=== PATIENT | male | born 1945 | race Caucasian/White ===

== ENCOUNTER 2018-04-13 04:26 | Inpatient (IN) | payer MEDICARE, MEDICAID ==
[2018-04-13] VITALS (8 sets, daily range): BP systolic 105–158; BP diastolic 58–78
[~2018-04-13] VITALS: Ht 185.4 cm; Wt 67.8 kg
[2018-04-13] MEDS ORDERED: IPRATROPIUM BROMIDE (0.02%) 0.5MG/2.5ML NEB HHN STA (04:36)
[2018-04-13] MEDS ORDERED: METHYLPREDNISOLONE SOD SUCC 125 MG/2 ML VIAL IV STA (04:36)
[2018-04-13] MEDS ORDERED: MAGNESIUM 2 G PREMIX 50 ML IV ONE (04:45)
[2018-04-13] MEDS: ALBUTEROL (0.083%) 2.5MG/3ML NEB HHN SCH ×3 (05:00→06:37)
[2018-04-13] MEDS ORDERED: LEVOFLOXACIN 750MG PREMIX 150 ML IV ONE (05:00)
[2018-04-13] MEDS ORDERED: CALCIUM GLUCONATE 100MG/ML 10ML VIAL IV ONE (05:00)
[2018-04-13 05:10] LABS: HEMATOCRIT. 41.8 % (42.0-52.0); HEMOGLOBIN. 14.1 g/dL (14.0-18.0); MEAN CORPUSCULAR HEMOGLOBIN 30.4 pg (28.0-32.0); MEAN CORPUSCULAR VOLUME 90.4 fL (80.0-94.0); MEAN PLATELET VOLUME 6.6 fl (7.4-10.4); PLATELET 371 x1000/uL (130-400); RED BLOOD CELL COUNT 4.62 mill/uL (4.7-6.1)
[2018-04-13 05:14] LABS: CHLORIDE 95 mEq/L (98-107)
[2018-04-13] MEDS ORDERED: CALCIUM GLUCONATE 1,000 MG in DEXTROSE 5% WATER 50 ML IV SCH (06:00)
[2018-04-13] MEDS: MAGNESIUM 1 G PREMIX 100 ML IV SCH ×2 (06:07→07:30)
[2018-04-13 07:09] LABS: PLATELET ESTIMATE NORMAL
[2018-04-13] MEDS: DILTIAZEM HCL 30MG TABLET PO SCH ×3 (08:03→21:31)
[2018-04-13 08:57] LABS: BG BASE EXCESS 0.7 mmol/L (-2.0-2.0); BG CARBOXYHEMOGLOBIN 0.9 % (0.5-1.5); BG DEOXYHEMOGLOBIN 5.1 % (0.0-5.0); BG HCO3 ACT 24.9 mmol/L (22.0-26.0); BG METHEMOGLOBIN 0.4 % (0.0-1.5); BG OXYGEN SATURATION 94.8 % (92.0-98.5); BG OXYHEMOGLOBIN 93.6 % (94.0-97.0); BG PCO2 38.8 mmHg (35.0-45.0); BG PH 7.426 (7.350-7.450); BG PO2 79.7 mmHg (75.0-100.0); BG SAMPLE SITE RIGHT RADIAL; BG TOTAL HEMOGLOBIN 13.7 g/dL (12.0-18.0); BG VENT MODE NASAL CANNULA
[2018-04-13] MEDS ORDERED: ACETAMINOPHEN 325MG TABLET PO PRN (09:30)
[2018-04-13] MEDS ORDERED: MAGNESIUM/ALUMINUM HYDROXIDE/SIMETHICONE 30ML UDC PO PRN (09:30)
[2018-04-13] MEDS ORDERED: ACETAMINOPHEN 650MG SUPP PR PRN (09:30)
[2018-04-13] MEDS ORDERED: ACETAMINOPHEN 650MG/20.3ML UDC GT PRN (09:30)
[2018-04-13] MEDS ORDERED: ONDANSETRON HCL 4MG/2ML INJ IV PRN (09:30)
[2018-04-13] MEDS ORDERED: HYDROCODONE/ACETAMINOPHEN 5/325MG TABLET PO PRN (09:30)
[2018-04-13 13:55] LABS: CHLORIDE 92 mEq/L (98-107)
[2018-04-13] MEDS ORDERED: LEVOFLOXACIN 750MG PREMIX 150 ML IV SCH (14:00)
[2018-04-13] MEDS ORDERED: IPRATROPIUM/ALBUTEROL 0.5-3(2.5)MG/3ML NEB HHN PRN (14:00)
[2018-04-13 15:46] LABS: CREATINE KINASE 15 IU/L (39-308)
[2018-04-13 15:47] LABS: CREATINE KINASE MB FRACTION < 1.0 ng/mL (0.5-3.6)
[2018-04-13] MEDS: ASPIRIN 325MG EC TABLET PO SCH (16:29)
[2018-04-13] MEDS: NICOTINE 14MG PATCH TD SCH (16:29)
[2018-04-13] MEDS: DIGOXIN 125MCG TABLET PO SCH (17:39)
[2018-04-13] MEDS ORDERED: IOHEXOL-350 100 ML BOTTLE ONE (19:55)
[2018-04-13] MEDS: IPRATROPIUM/ALBUTEROL 0.5-3(2.5)MG/3ML NEB HHN SCH (20:52)
[2018-04-13] MEDS: BUDESONIDE 0.5MG/2ML NEB HHN SCH (20:53)
[2018-04-14] VITALS (13 sets, daily range): BP systolic 96–130; BP diastolic 44–98
[2018-04-14 00:29] LABS: AMMONIA 28 uMol/L (<32)
[2018-04-14] MEDS: IPRATROPIUM/ALBUTEROL 0.5-3(2.5)MG/3ML NEB HHN SCH ×4 (00:51→20:46)
[2018-04-14] MEDS: DILTIAZEM HCL 30MG TABLET PO SCH ×2 (05:59→13:42)
[2018-04-14 06:43] LABS: HEMATOCRIT. 33.9 % (42.0-52.0); HEMOGLOBIN. 11.4 g/dL (14.0-18.0); MEAN CORPUSCULAR HEMOGLOBIN 30.3 pg (28.0-32.0); MEAN CORPUSCULAR VOLUME 90.3 fL (80.0-94.0); MEAN PLATELET VOLUME 7.2 fl (7.4-10.4); PLATELET 348 x1000/uL (130-400); RED BLOOD CELL COUNT 3.75 mill/uL (4.7-6.1)
[2018-04-14 07:12] LABS: CHLORIDE 93 mEq/L (98-107)
[2018-04-14 07:20] LABS: LDL CHOLESTEROL 43 mg/dL (5-100)
[2018-04-14 07:22] LABS: HDL CHOLESTEROL 48 mg/dL (40-59)
[2018-04-14] MEDS: BUDESONIDE 0.5MG/2ML NEB HHN SCH ×3 (08:41→20:46)
[2018-04-14] MEDS: NICOTINE 14MG PATCH TD SCH (08:57)
[2018-04-14] MEDS: PREDNISONE 20MG TABLET PO SCH (08:57)
[2018-04-14] MEDS: ASPIRIN 325MG EC TABLET PO SCH (08:57)
[2018-04-14 09:01] LABS: CLARITY URINE CLEAR (CLEAR); COLOR URINE YELLOW (YELLOW); KETONES URINE NEGATIVE (NEGATIVE); LEUKOCYTE ESTERASE URINE NEGATIVE (NEGATIVE); NITRITE URINE NEGATIVE (NEGATIVE); OCCULT BLOOD URINE NEGATIVE (NEGATIVE); PH URINE 7.5 (4.5-8.0); PROTEIN URINE NEGATIVE (NEGATIVE); SPECIFIC GRAVITY URINE 1.023 (1.005-1.030); UROBILINOGEN URINE 0.2 E.U./dL (0.2-1.0)
[2018-04-14 09:33] LABS: *AMPHETAMINES SCREEN URINE NEGATIVE (NEGATIVE); *BARBITURATES SCREEN URINE NEGATIVE (NEGATIVE); *BENZODIAZEPINES SCREEN URINE NEGATIVE (NEGATIVE); *COCAINE SCREEN URINE NEGATIVE (NEGATIVE); METHADONE URINE SCREEN NEGATIVE (NEGATIVE); OPIATES URINE SCREEN PRESUMTIVE POSITIVE (NEGATIVE)
[2018-04-14 09:34] LABS: CANNABINOID URINE SCREEN NEGATIVE (NEGATIVE); PHENCYCLIDINE URINE SCREEN NEGATIVE (NEGATIVE)
[2018-04-14] MEDS ORDERED: TRAMADOL 50MG TABLET PO PRN (10:30)
[2018-04-14] MEDS: LEVOFLOXACIN 750MG PREMIX 150 ML IV SCH (11:26)
[2018-04-14 14:32] LABS: PLATELET ESTIMATE NORMAL
[2018-04-14] MEDS: DIGOXIN 125MCG TABLET PO SCH (18:00)
[2018-04-14] MEDS: DILTIAZEM HCL 60MG TABLET PO SCH (21:16)
[2018-04-15] VITALS (8 sets, daily range): BP systolic 103–144; BP diastolic 56–78
[2018-04-15] MEDS: IPRATROPIUM/ALBUTEROL 0.5-3(2.5)MG/3ML NEB HHN SCH ×4 (01:17→21:28)
[2018-04-15 05:59] LABS: CHLORIDE 93 mEq/L (98-107)
[2018-04-15] MEDS: DILTIAZEM HCL 60MG TABLET PO SCH ×3 (07:12→21:04)
[2018-04-15] MEDS: BUDESONIDE 0.5MG/2ML NEB HHN SCH ×2 (07:29→21:28)
[2018-04-15] MEDS: ASPIRIN 325MG EC TABLET PO SCH (09:26)
[2018-04-15] MEDS: NICOTINE 14MG PATCH TD SCH (09:26)
[2018-04-15] MEDS: PREDNISONE 20MG TABLET PO SCH (09:26)
[2018-04-15] MEDS: LEVOFLOXACIN 750MG PREMIX 150 ML IV SCH (11:00)
[2018-04-15] MEDS ORDERED: GUAIFENESIN 600MG ER TABLET PO SCH (11:30)
[2018-04-15] MEDS: GUAIFENESIN 600MG ER TABLET PO SCH ×2 (13:50→20:59)
[2018-04-15 13:56] LABS: BG BASE EXCESS 2.8 mmol/L (-2.0-2.0); BG CARBOXYHEMOGLOBIN 1.2 % (0.5-1.5); BG DEOXYHEMOGLOBIN 10.4 % (0.0-5.0); BG FRACTION INSPIRED OXYGEN 21; BG HCO3 ACT 27.2 mmol/L (22.0-26.0); BG METHEMOGLOBIN 0.3 % (0.0-1.5); BG OXYGEN SATURATION 89.4 % (92.0-98.5); BG OXYHEMOGLOBIN 88.1 % (94.0-97.0); BG PCO2 40.8 mmHg (35.0-45.0); BG PH 7.441 (7.350-7.450); BG PO2 57.2 mmHg (75.0-100.0); BG SAMPLE SITE RIGHT BRACHIAL; BG TOTAL HEMOGLOBIN 13.1 g/dL (12.0-18.0); BG VENT MODE ROOM AIR
[2018-04-15] MEDS: DIGOXIN 125MCG TABLET PO SCH (17:53)
[2018-04-16] VITALS: BP 110/59
[2018-04-16] MEDS: IPRATROPIUM/ALBUTEROL 0.5-3(2.5)MG/3ML NEB HHN SCH ×4 (01:34→21:50)
[2018-04-16 04:00] VITALS: BP 112/60
[2018-04-16] MEDS: DILTIAZEM HCL 60MG TABLET PO SCH ×3 (06:37→21:47)
[2018-04-16 08:00] VITALS: BP 124/65
[2018-04-16] MEDS: BUDESONIDE 0.5MG/2ML NEB HHN SCH ×2 (08:08→21:50)
[2018-04-16] MEDS: PREDNISONE 20MG TABLET PO SCH (09:00)
[2018-04-16] MEDS: GUAIFENESIN 600MG ER TABLET PO SCH ×2 (09:00→20:44)
[2018-04-16] MEDS: ASPIRIN 325MG EC TABLET PO SCH (09:00)
[2018-04-16] MEDS: NICOTINE 14MG PATCH TD SCH (09:00)
[2018-04-16 09:38] LABS: BASOPHILS % 0.5 % (0.0-2.0); EOSINOPHILS % 1.1 % (0.0-5.0); HEMATOCRIT. 38.8 % (42.0-52.0); HEMOGLOBIN. 12.9 g/dL (14.0-18.0); MEAN CORPUSCULAR HEMOGLOBIN 29.9 pg (28.0-32.0); MEAN CORPUSCULAR VOLUME 89.7 fL (80.0-94.0); MEAN PLATELET VOLUME 7.4 fl (7.4-10.4); MONOCYTES % 10.4 % (2.0-8.0); PLATELET 424 x1000/uL (130-400); RED BLOOD CELL COUNT 4.32 mill/uL (4.7-6.1); RED CELL DISTRIBUTION WIDTH 14.9 % (11.6-14.6)
[2018-04-16 10:38] LABS: CHLORIDE 90 mEq/L (98-107)
[2018-04-16 10:46] LABS: PHOSPHORUS 3.1 mg/dL (2.5-4.9)
[2018-04-16 12:00] VITALS: BP 111/58
[2018-04-16] MEDS ORDERED: MAGNESIUM 1 G PREMIX 100 ML IV NR (13:00)
[2018-04-16] MEDS: LEVOFLOXACIN 750MG PREMIX 150 ML IV SCH (13:17)
[2018-04-16] MEDS: SODIUM CHLORIDE 0.9% 1,000 ML IV SCH (15:47)
[2018-04-16 16:00] VITALS: BP 120/69
[2018-04-16] MEDS: DIGOXIN 125MCG TABLET PO SCH (17:23)
[2018-04-16 19:07] LABS: SODIUM URINE RANDOM 27 mEq/L
[2018-04-16 20:00] VITALS: BP 109/76
[2018-04-17] VITALS (8 sets, daily range): BP systolic 121–149; BP diastolic 67–78
[2018-04-17] MEDS: IPRATROPIUM/ALBUTEROL 0.5-3(2.5)MG/3ML NEB HHN SCH ×3 (02:01→14:44)
[2018-04-17] MEDS: DILTIAZEM HCL 60MG TABLET PO SCH ×2 (05:36→16:22)
[2018-04-17] MEDS: BUDESONIDE 0.5MG/2ML NEB HHN SCH (08:06)
[2018-04-17] MEDS ORDERED: PREDNISONE 20MG TABLET PO SCH (09:00)
[2018-04-17] MEDS: ASPIRIN 325MG EC TABLET PO SCH (09:26)
[2018-04-17] MEDS: NICOTINE 14MG PATCH TD SCH (09:27)
[2018-04-17] MEDS: GUAIFENESIN 600MG ER TABLET PO SCH (11:07)
[2018-04-17] MEDS: LEVOFLOXACIN 750MG PREMIX 150 ML IV SCH (11:08)
[2018-04-17] MEDS: SODIUM CHLORIDE 0.9% 1,000 ML IV SCH (11:12)
[2018-04-17] MEDS: DIGOXIN 125MCG TABLET PO SCH (20:00)
== END 2018-04-17 21:15 | DRG 871 ==
LOC: ER 04:26 → 3WST 05:14 → EDBEDREQ 05:15 → EDBEDREQTM 05:15 → EDBEDREQSVC 05:15 → ENRESERV 13:41 → 5WST 04-15 12:19
PROVIDERS: ADMIT Internal Medicine; ATTEND Internal Medicine
DX: A41.9 Sepsis, unspecified organism (principal); J18.1 Lobar pneumonia, unspecified organism; J96.21 Acute and chronic respiratory failure with hypoxia; E43 Unspecified severe protein-calorie malnutrition; J44.1 Chronic obstructive pulmonary disease with (acute) exacerbation; J44.0 Chronic obstructive pulmonary disease with (acute) lower respiratory infection; E87.1 Hypo-osmolality and hyponatremia; E87.2 Acidosis; Z68.1 Body mass index [BMI] 19.9 or less, adult; F20.9 Schizophrenia, unspecified; G40.909 Epilepsy, unspecified, not intractable, without status epilepticus; Y95 Nosocomial condition; I48.91 Unspecified atrial fibrillation; J84.10 Pulmonary fibrosis, unspecified; E83.42 Hypomagnesemia; E87.8 Other disorders of electrolyte and fluid balance, not elsewhere classified; H26.9 Unspecified cataract; G47.00 Insomnia, unspecified; R73.9 Hyperglycemia, unspecified; F17.210 Nicotine dependence, cigarettes, uncomplicated; Z86.73 Personal history of transient ischemic attack (TIA), and cerebral infarction without residual deficits; Z71.6 Tobacco abuse counseling; Z79.899 Other long term (current) drug therapy
CPT/HCPCS: 36415; 36600; 71045; 71275; 80048; 80053; 80061; 80305; 81003; 82140; 82375; 82550; 82553; 82805; 83605; 83690; 83735; 83880; 83935; 83937; 84100; 84145; 84300; 84439; 84443; 84481; 84484; 85025; 87040; 87086; 92610; 93005; 93306; 93970; 94640; 94660; 96365; 96366; 96367; 97116; 97162; 97166; 97530; 97535; 99291; J0610; J1956; J2930; J3475; J7030; J7050; J7060; J7512; J7611; J7620; J7626; Q9967

== ENCOUNTER 2018-10-09 22:34 | Inpatient (IN) | payer MEDICARE, MEDICAID ==
[~2018-10-09] VITALS: Ht 182.9 cm; Wt 76.2 kg
[2018-10-09] MEDS ORDERED: MAGNESIUM 2 G PREMIX 50 ML IV STA (23:31)
[2018-10-09] MEDS ORDERED: ALBUTEROL (0.083%) 2.5MG/3ML NEB HHN STA (23:31)
[2018-10-09] MEDS ORDERED: IPRATROPIUM BROMIDE (0.02%) 0.5MG/2.5ML NEB HHN STA (23:31)
[2018-10-09] MEDS ORDERED: METHYLPREDNISOLONE SOD SUCC 125 MG/2 ML VIAL IV STA (23:31)
[2018-10-09] MEDS ORDERED: ASPIRIN 325MG EC TABLET PO ONE (23:45)
[2018-10-10] VITALS (8 sets, daily range): BP systolic 109–140; BP diastolic 68–92
[2018-10-10 00:03] LABS: HEMATOCRIT. 36.3 % (42.0-52.0); HEMOGLOBIN. 12.5 g/dL (14.0-18.0); MEAN CORPUSCULAR HEMOGLOBIN 29.8 pg (28.0-32.0); MEAN CORPUSCULAR VOLUME 86.8 fL (80.0-94.0); MEAN PLATELET VOLUME 6.5 fl (7.4-10.4); PLATELET 256 x1000/uL (130-400); RED BLOOD CELL COUNT 4.18 mill/uL (4.7-6.1); RED CELL DISTRIBUTION WIDTH 14.6 % (11.6-14.6)
[2018-10-10 00:06] LABS: CHLORIDE 95 mEq/L (98-107)
[2018-10-10 00:08] LABS: INR 1.1; PROTHROMBIN TIME 11.5 sec (9.1-11.1)
[2018-10-10] MEDS ORDERED: METHYLPREDNISOLONE SOD SUCC 125 MG/2 ML VIAL IV SCH (00:25)
[2018-10-10] MEDS ORDERED: SODIUM CHLORIDE 0.9% 500 ML IV ONE (00:29)
[2018-10-10] MEDS ORDERED: PIPERACILLIN/TAZ 3.375G PREMIX 50 ML IV ONE (00:45)
[2018-10-10] MEDS ORDERED: LEVOFLOXACIN 750MG PREMIX 150 ML IV ONE (00:45)
[2018-10-10] MEDS ORDERED: SODIUM CHLORIDE 0.9% 1000ML BAG (SEPSIS BOLUS) IV ONE (00:45)
[2018-10-10] MEDS: SODIUM CHLORIDE 0.9% 1,000 ML IV SCH ×2 (04:43→21:07)
[2018-10-10] MEDS ORDERED: MAGNESIUM/ALUMINUM HYDROXIDE/SIMETHICONE 30ML UDC PO PRN (04:45)
[2018-10-10] MEDS ORDERED: PIPERACILLIN/TAZ 3.375G PREMIX 50 ML IV SCH (04:45)
[2018-10-10] MEDS ORDERED: HYDROCODONE/ACETAMINOPHEN 5/325MG TABLET PO PRN (04:45)
[2018-10-10] MEDS ORDERED: ONDANSETRON HCL 4MG/2ML INJ IV PRN (04:45)
[2018-10-10] MEDS ORDERED: DOCUSATE SODIUM 100MG CAPSULE PO PRN (04:45)
[2018-10-10] MEDS ORDERED: ACETAMINOPHEN 325MG TABLET PO PRN (04:45)
[2018-10-10] MEDS ORDERED: IPRATROPIUM/ALBUTEROL 0.5-3(2.5)MG/3ML NEB INH PRN (04:45)
[2018-10-10] MEDS ORDERED: GUAIFENESIN 200MG/10ML SUGAR FREE UDC PO PRN (04:45)
[2018-10-10 05:31] LABS: PLATELET ESTIMATE NORMAL
[2018-10-10 06:47] LABS: CREATINE KINASE 604 IU/L (39-308)
[2018-10-10 06:48] LABS: CREATINE KINASE MB FRACTION 1.9 ng/mL (0.5-3.6)
[2018-10-10] MEDS ORDERED: NA PHOS,M-B/NA PHOS,DI-BA ENEMA 118ML PR PRN (09:00)
[2018-10-10] MEDS: ENOXAPARIN 40MG/0.4ML SYR SUBCUT SCH (10:32)
[2018-10-10 12:07] LABS: CLARITY URINE CLEAR (CLEAR); COLOR URINE YELLOW (YELLOW); KETONES URINE NEGATIVE (NEGATIVE); LEUKOCYTE ESTERASE URINE NEGATIVE (NEGATIVE); NITRITE URINE NEGATIVE (NEGATIVE); OCCULT BLOOD URINE NEGATIVE (NEGATIVE); PROTEIN URINE TRACE (NEGATIVE); SPECIFIC GRAVITY URINE 1.021 (1.005-1.030); UROBILINOGEN URINE 0.2 E.U./dL (0.2-1.0)
[2018-10-10] MEDS: PIPERACILLIN/TAZ 3.375G PREMIX 50 ML IV SCH ×2 (13:30→19:03)
[2018-10-10] MEDS: METHYLPREDNISOLONE SOD SUCC 40 MG/ML VIAL IV SCH ×2 (17:11→23:33)
[2018-10-10] MEDS: DILTIAZEM HCL 30MG TABLET PO SCH ×2 (17:11→23:33)
[2018-10-10 17:32] LABS: CREATINE KINASE 473 IU/L (39-308)
[2018-10-10 17:33] LABS: CREATINE KINASE MB FRACTION 2.8 ng/mL (0.5-3.6)
[2018-10-10] MEDS: GUAIFENESIN 600MG ER TABLET PO SCH (21:07)
[2018-10-10] MEDS: IPRATROPIUM BROMIDE (0.02%) 0.5MG/2.5ML NEB HHN SCH (21:25)
[2018-10-10] MEDS: BUDESONIDE 0.5MG/2ML NEB HHN SCH (21:25)
[2018-10-11] VITALS (12 sets, daily range): BP systolic 96–138; BP diastolic 54–94
[2018-10-11] MEDS: IPRATROPIUM BROMIDE (0.02%) 0.5MG/2.5ML NEB HHN SCH ×6 (01:21→21:03)
[2018-10-11] MEDS: PIPERACILLIN/TAZ 3.375G PREMIX 50 ML IV SCH ×3 (03:19→18:06)
[2018-10-11] MEDS: METHYLPREDNISOLONE SOD SUCC 40 MG/ML VIAL IV SCH ×3 (06:17→21:54)
[2018-10-11] MEDS: DILTIAZEM HCL 30MG TABLET PO SCH ×4 (06:18→23:25)
[2018-10-11 07:20] LABS: HEMATOCRIT. 35.3 % (42.0-52.0); MEAN CORPUSCULAR HEMOGLOBIN 29.2 pg (28.0-32.0); MEAN CORPUSCULAR VOLUME 86.2 fL (80.0-94.0); PLATELET 249 x1000/uL (130-400); RED CELL DISTRIBUTION WIDTH 14.6 % (11.6-14.6)
[2018-10-11 07:46] LABS: CHLORIDE 96 mEq/L (98-107)
[2018-10-11] MEDS: ENOXAPARIN 40MG/0.4ML SYR SUBCUT SCH (08:29)
[2018-10-11] MEDS: GUAIFENESIN 600MG ER TABLET PO SCH ×2 (08:30→21:54)
[2018-10-11] MEDS: BUDESONIDE 0.5MG/2ML NEB HHN SCH ×2 (09:33→21:03)
[2018-10-11 10:25] LABS: PLATELET ESTIMATE NORMAL
[2018-10-11 10:35] LABS: BG BASE EXCESS 2.6 mmol/L (-2.0-2.0); BG CARBOXYHEMOGLOBIN 0.3 % (0.5-1.5); BG FRACTION INSPIRED OXYGEN 32; BG HCO3 ACT 27.4 mmol/L (22.0-26.0); BG METHEMOGLOBIN 0.2 % (0.0-1.5); BG OXYHEMOGLOBIN 94.5 % (94.0-97.0); BG PCO2 42.9 mmHg (35.0-45.0); BG PH 7.423 (7.350-7.450); BG PO2 80.5 mmHg (75.0-100.0); BG SAMPLE SITE LEFT RADIAL; BG TOTAL HEMOGLOBIN 11.9 g/dL (12.0-18.0); BG VENT MODE NASAL CANNULA
[2018-10-11] MEDS: ACETYLCYSTEINE 100MG/ML 10% VIAL 4ML INH SCH ×2 (13:04→16:57)
[2018-10-11 13:06] LABS: OPIATES URINE SCREEN PRESUMTIVE POSITIVE (NEGATIVE)
[2018-10-11 13:07] LABS: *AMPHETAMINES SCREEN URINE NEGATIVE (NEGATIVE); *BARBITURATES SCREEN URINE NEGATIVE (NEGATIVE); *BENZODIAZEPINES SCREEN URINE NEGATIVE (NEGATIVE); *COCAINE SCREEN URINE NEGATIVE (NEGATIVE); CANNABINOID URINE SCREEN NEGATIVE (NEGATIVE); METHADONE URINE SCREEN NEGATIVE (NEGATIVE); PHENCYCLIDINE URINE SCREEN NEGATIVE (NEGATIVE)
[2018-10-11] MEDS: SODIUM CHLORIDE 0.9% 1,000 ML IV SCH (13:37)
[2018-10-12] VITALS (12 sets, daily range): BP systolic 103–137; BP diastolic 49–96
[2018-10-12] MEDS: ACETYLCYSTEINE 100MG/ML 10% VIAL 4ML INH SCH ×3 (01:24→22:18)
[2018-10-12] MEDS: IPRATROPIUM BROMIDE (0.02%) 0.5MG/2.5ML NEB HHN SCH ×6 (01:25→22:18)
[2018-10-12] MEDS: PIPERACILLIN/TAZ 3.375G PREMIX 50 ML IV SCH ×3 (02:59→19:49)
[2018-10-12] MEDS: METHYLPREDNISOLONE SOD SUCC 40 MG/ML VIAL IV SCH (06:31)
[2018-10-12] MEDS: SODIUM CHLORIDE 0.9% 1,000 ML IV SCH ×2 (06:31→23:02)
[2018-10-12] MEDS: DILTIAZEM HCL 30MG TABLET PO SCH ×4 (06:34→23:03)
[2018-10-12] MEDS: ENOXAPARIN 40MG/0.4ML SYR SUBCUT SCH (08:33)
[2018-10-12] MEDS: GUAIFENESIN 600MG ER TABLET PO SCH ×2 (08:33→21:26)
[2018-10-12] MEDS: BUDESONIDE 0.5MG/2ML NEB HHN SCH ×2 (09:04→22:18)
[2018-10-12] MEDS: PREDNISONE 20MG TABLET PO SCH (17:25)
[2018-10-13] VITALS (9 sets, daily range): BP systolic 117–135; BP diastolic 57–89
[2018-10-13] MEDS: IPRATROPIUM BROMIDE (0.02%) 0.5MG/2.5ML NEB HHN SCH ×4 (01:08→12:16)
[2018-10-13] MEDS: PIPERACILLIN/TAZ 3.375G PREMIX 50 ML IV SCH ×2 (03:54→13:25)
[2018-10-13] MEDS: DILTIAZEM HCL 30MG TABLET PO SCH ×2 (06:19→13:25)
[2018-10-13] MEDS: PREDNISONE 20MG TABLET PO SCH (06:20)
[2018-10-13] MEDS: BUDESONIDE 0.5MG/2ML NEB HHN SCH (08:27)
[2018-10-13] MEDS: ACETYLCYSTEINE 100MG/ML 10% VIAL 4ML INH SCH (08:27)
[2018-10-13] MEDS: GUAIFENESIN 600MG ER TABLET PO SCH (09:33)
[2018-10-13] MEDS: ENOXAPARIN 40MG/0.4ML SYR SUBCUT SCH (09:34)
[2018-10-14] MEDS ORDERED: METRONIDAZOLE 500MG TABLET PO SCH (06:00)
[2018-10-14] MEDS ORDERED: LEVOFLOXACIN 250MG TABLET PO SCH (09:00)
== END 2018-10-13 15:44 | DRG 871 ==
LOC: ER 22:40 → 3WST 10-10 01:19 → EDBEDREQ 10-10 01:22 → EDBEDREQTM 10-10 01:22 → SUPCPDRO 10-10 04:42 → ENRESERV 10-10 07:24
PROVIDERS: ADMIT Hospitalist; ATTEND Hospitalist
DX: A41.9 Sepsis, unspecified organism (principal); J96.00 Acute respiratory failure, unspecified whether with hypoxia or hypercapnia; G93.40 Encephalopathy, unspecified; E44.1 Mild protein-calorie malnutrition; I42.9 Cardiomyopathy, unspecified; J98.11 Atelectasis; J44.1 Chronic obstructive pulmonary disease with (acute) exacerbation; F20.9 Schizophrenia, unspecified; I48.91 Unspecified atrial fibrillation; G40.909 Epilepsy, unspecified, not intractable, without status epilepticus; D64.9 Anemia, unspecified; E78.00 Pure hypercholesterolemia, unspecified; I11.0 Hypertensive heart disease with heart failure; I25.10 Atherosclerotic heart disease of native coronary artery without angina pectoris; I50.9 Heart failure, unspecified; K21.9 Gastro-esophageal reflux disease without esophagitis; Z82.49 Family history of ischemic heart disease and other diseases of the circulatory system; I25.2 Old myocardial infarction; Z87.891 Personal history of nicotine dependence; Z68.22 Body mass index [BMI] 22.0-22.9, adult
CPT/HCPCS: 36415; 36600; 71045; 80305; 82375; 82550; 82553; 82805; 83605; 83880; 84145; 84484; 87804; 93005; 93970; 94640; 96365; 96366; 97162; 97530; 99291; J1650; J1956; J2543; J2920; J2930; J3475; J7030; J7512; J7608; J7611; J7626